=== PATIENT | male | born 1985 | race Caucasian/White ===

== ENCOUNTER 2018-01-14 16:20 | Emergency (ER) | payer OTHER ==
[2018-01-14] MEDS ORDERED: KETOROLAC TROMETHAMINE 30 MG/1 ML VIAL IM ONE (16:35)
--- NOTE | 2018-01-14 16:35 | PDOC ---
Rapid Medical Evaluation Time Seen by Provider: 01/14/18 16:33 Medical Evaluation: 01/14/18 16:34 I have performed a brief in-person evaluation of this patient. The patient presents with a chief complaint of: left neck pain x3 days Pertinent physical exam findings: palpable muscl spasm to left SCM I have ordered the following: toradol The patient will proceed to the ED for further evaluation. Discharge Disposition - Diagnosis Muscle spasm - Referrals - Patient Instructions - Post Discharge Activity
[2018-01-14 16:37] VITALS: BP 135/81; PULSE 70; TEMP 98.2; BMI 21.1
[2018-01-14] MEDS ORDERED: KETOROLAC TROMETHAMINE 30 MG/1 ML VIAL ONE (16:54)
--- NOTE | 2018-01-14 17:03 | PDOC ---
History of Present Illness - General Chief Complaint: Head/Neck problem Stated Complaint: NECK PAIN Time Seen by Provider: 01/14/18 16:33 History Source: Patient Exam Limitations: No Limitations - History of Present Illness Initial Comments: 01/14/18 17:14 Came with complaints of worsening neck pain and spasm. States onset was last week, however took some ibuprofen/Advil and had some resolution however never complete. States then Friday woke up and pain was worse and is progressively worsened to where he is unable to straighten his head. Denies fever, earache sore throat pain or cough. Has had no recent injury or exercise change. No rashes or lesions, no history of cervical spine injury. Occurred: reports: last week Severity: reports: moderate Pain Location: reports: neck Method of Injury: Yes: unknown Modifying Factors: improves with: None Loss of Consciousness: no loss of consciousness Associated Symptoms (Fall): denies symptoms Past History - Travel Traveled outside of the country in the last 30 days: No Close contact w/someone who was outside of country & ill: No - Past Medical History Allergies/Adverse Reactions: Allergies Allergy/AdvReac Type Severity Reaction Status Date / Time No Known Allergies Allergy Verified 01/14/18 16:37 Home Medications: Ambulatory Orders Cyclobenzaprine HCl 10 mg PO Q8H PRN #14 tablet 01/14/18 Naproxen [Naprosyn -] 500 mg PO BID #30 tablet 01/14/18 COPD: No - Suicide/Smoking/Psychosocial Hx Smoking History: Never smoked Review of Systems - Review of Systems Able to Perform ROS?: Yes Is the patient limited Gu[place]ian proficient: Yes Constitutional: Yes: Symptoms Reported, See HPI, Malaise. No: Chills, Fever HEENTM: Yes: See HPI. No: Symptoms Reported, Nose Congestion, Throat Pain Respiratory: No: Symptoms reported ABD/GI: No: Symptoms Reported Musculoskeletal: Yes: Symptoms Reported, See HPI, Muscle Pain, Muscle Weakness Integumentary: Yes: See HPI. No: Symptoms Reported, Rash All Other Systems: Reviewed and Negative *Physical Exam - Vital Signs Last Vital Signs Temp Pulse Resp BP Pulse Ox 98.2 F 70 18 135/81 99 01/14/18 16:34 01/14/18 16:34 01/14/18 16:34 01/14/18 16:34 01/14/18 16:34 - Physical Exam General Appearance: Yes: Nourished, Appropriately Dressed, Apparent Distress, Mild Distress HEENT: positive: GERMAN, Normal ENT Inspection, TMs Normal, Pharynx Normal Neck: positive: Tender (tender tight sternocleidomastoid musculature worse on the left than the right. Patient is unable to straighten neck to forward neutral position/ has no C-spine tendepitus or step-offs.), Decreased range of motion. negative: Supple, Lymphadenopathy (L) Respiratory/Chest: positive: Lungs Clear, Normal Breath Sounds Cardiovascular: positive: Regular Rate Gastrointestinal/Abdominal: positive: Soft Musculoskeletal: positive: Normal Inspection. negative: CVA Tenderness, Vertebral Tenderness Extremity: positive: Normal Capillary Refill, Normal Inspection, Normal Range of Motion Integumentary: positive: Normal Color, Dry, Warm, Pale Neurologic: positive: senior test analyst II-XII NML intact, Fully Oriented, Alert, Normal Mood/ Affect, Normal Response, Motor Strength 5/5 Moderate Sedation - Procedure Monitoring Vital Signs: Procedure Monitoring Vital Signs Temperature 98.2 F 01/14/18 16:34 Pulse Rate 70 01/14/18 16:34 Respiratory Rate 18 01/14/18 16:34 Blood Pressure 135/81 01/14/18 16:34 O2 Sat by Pulse Oximetry (%) 99 01/14/18 16:34 Progress Note - Progress Note Progress Note: torticollis, we'll treat with NSAIDs and Cyclobenzaprine *DC/Admit/Observation/Transfer Diagnosis at time of Disposition: Muscle spasm, Torticollis - Discharge Dispostion Disposition: HOME Condition at time of disposition: Stable Decision to Admit order: No - Referrals Referrals: Ankit Garcia MD [Staff Physician] - - Patient Instructions Printed Discharge Instructions: DI for Torticollis Additional Instructions: Rest, no heavy lifting or exercise until pain is resolved Hot soaks to neck and low back as often as possible/hot showers or Jacuzzis No massage or therapy until spasm is gone Continue Naprosyn 500 mg tablet, 1 tablet every 12 hours for the next 3 days then as needed for pain and swelling Cyclobenzaprine 1-10mg every 8 hours as needed for spasm If not significant improvement within 24 hours with medication and rest regime, followup with private physician for change in medications and /or therapy. - Post Discharge Activity Forms/Work/School Notes: Back to Work
== END 2018-01-14 17:20 | disposition home or self-care (01) ==
LOC: JERFT 16:20
PROC: 3E0233Z Introduction of Anti-inflammatory into Muscle, Percutaneous Approach (ICD-10-PCS; principal; 2018-01-14)
DX: M62.838 Other muscle spasm (principal); M43.6 Torticollis
CPT/HCPCS: 99281-25